=== PATIENT | female | born 1945 | race Two or more races ===

== ENCOUNTER 2020-05-30 06:38 | Day surgery (SDC) | payer OTHER | END 2020-05-30 10:35 | disposition home or self-care (01) | LOC: AMB-ENDOS 06:38 | PROVIDERS: ATTEND Surgery | DX: K62.89 Other specified diseases of anus and rectum (principal); K64.4 Residual hemorrhoidal skin tags; Z20.822 Contact with and (suspected) exposure to COVID-19 ==

== ENCOUNTER 2020-12-30 14:09 | Outpatient (CLI) | payer OTHER | END 2020-12-30 14:18 | disposition home or self-care (01) | LOC: RAD 14:09 | PROVIDERS: ATTEND Surgery | DX: K59.02 Outlet dysfunction constipation (principal); N81.6 Rectocele; N81.5 Vaginal enterocele ==

== ENCOUNTER 2023-01-02 08:42 | Inpatient (IN) | payer OTHER ==
[~2023-01-02] VITALS: Ht 152.4 cm; Wt 54.4 kg
[~2023-01-02 08:42] MED LIST: ARNUITY ELLIPT50 MCG; INTESTINEX680 M1 PO; MONTELUKAST SOD10 MG; NORVASC2.5 MG; PREGABALIN100 MG; ROSUVASTATIN CAL5 MG; SYNTHROID75 MCG
--- NOTE | 2023-01-02 09:01 | NUR ---
PACIENTE FEMENINA ALERTA Y ORIENTADA X3, REFIERE TENER DIARREAS FUE OPERADA EL 12/16/22 POR LA DOCTORHarpreet HORTON, CARMEN LE REFIRIO QUE VINIERA A RAFAEL DE EMERGENCIA A SER ADMITIDA.
--- NOTE | 2023-01-02 10:02 | NUR ---
PTE EVALUADO POR QUIEN INDICA TX, PTE REFIERE ENTENDER Y ACEPTAR, MS.FREY COLECTA MUESTRAS DE LABORATORIO Y ADMINISTRA MEDICAMENTOS NIYAH ORDEN MEDICA Y SIGUIENDO MEDIDAS ASEPTICAS. SE HACE EKG Y SE PRESENTA A .
[2023-01-02 10:33] LABS: HEMATOCRIT 31.9 % (36.0-45.00); HEMOGLOBIN 10.6 g/dL (12.0-15.00); MEAN CELL VOLUME 84.5 fL (80.00-100.00); MEAN CORPUSCULAR HEMOGLOBIN 28.2 pg (27.00-32.0); MEAN CORPUSCULAR HGB CONC 33.4 g/dl (32.0-36.0); PLATELET COUNT 369 K/uL (150-450); RED BLOOD COUNT 3.77 M/uL (4.00-6.00); RED CELL DISTRIBUTION WIDTH 13.8 % (11.5-14.5)
[2023-01-02 10:51] LABS: CALCIUM 9.1 mg/dL (8.5-10.1); CREATININE SERUM 0.93 mg/dL (0.55-1.02); GFR 58.46; POTASSIUM 4.34 mEq/L (3.5-5.1)
[2023-01-02 11:21] LABS: PH,URINE 6.5 (5.0-8.0); URINE APPEARANCE Clear; URINE BILIRRUBIN Negative (NEGATIVE); URINE BLOOD Negative; URINE COLOR Yellow; URINE GLUCOSE Negative (NEGATIVE); URINE LEUKOCYTE Small; URINE NITRATE Negative; URINE PROTEIN Negative (NEGATIVE); URINE UROBILINOGEN 0.2 E.U./dl
[2023-01-02 11:25] LABS: URINE EPITHELIAL CELLS 5.7 uL (0.0-38.8); URINE WBC 48.2 uL (0.0-23.2)
[2023-01-02 11:27] LABS: URINE RBC 1.4 uL (0.0-20.8)
[2023-01-02 11:30] LABS: PARTIAL THROMBOPLASTIN TIME 27.1 SECONDS (22.0-34.0); PROTHROMBIN TIME 10.5 SECONDS (9.0-11.5)
[2023-01-02 14:15] LABS: CHOL HDL RATIO 3.4 (0-5.0)
[2023-01-03 08:42] LABS: HEMOGLOBIN 10.5 g/dL (12.0-15.00); MEAN CELL VOLUME 83.9 fL (80.00-100.00); MEAN CORPUSCULAR HEMOGLOBIN 28.5 pg (27.00-32.0); PLATELET COUNT 370 K/uL (150-450)
[2023-01-03 12:28] LABS: ALBUMIN 3.8 gm/dL (3.4-5.0); CALCIUM 8.8 mg/dL (8.5-10.1); CREATININE SERUM 0.82 mg/dL (0.55-1.02); GFR 67.6; MAGNESIUM 2.3 mg/dL (1.8-2.4); POTASSIUM 4.25 mEq/L (3.5-5.1); TSH 3.15 uIU/mL (0.358-3.74)
[2023-01-05 06:29] LABS: PARTIAL THROMBOPLASTIN TIME 28.5 SECONDS (22.0-34.0); PROTHROMBIN TIME 10.5 SECONDS (9.0-11.5)
[2023-01-05 06:35] LABS: HEMATOCRIT 30.3 % (36.0-45.00); HEMOGLOBIN 10.4 g/dL (12.0-15.00); MEAN CELL VOLUME 83.3 fL (80.00-100.00); MEAN CORPUSCULAR HEMOGLOBIN 28.5 pg (27.00-32.0); MEAN CORPUSCULAR HGB CONC 34.2 g/dl (32.0-36.0); PLATELET COUNT 300 K/uL (150-450); RED BLOOD COUNT 3.64 M/uL (4.00-6.00)
[2023-01-05 07:04] LABS: ALBUMIN 3.5 gm/dL (3.4-5.0); BILIRUBIN TOTAL 0.51 mg/dL (0.3-1.2); BILIRUBIN,CONJUGATED 0.15 mg/dL (0.0-0.2); BILIRUBIN,UNCONJUGATED 0.36 mg/dL (0.0-0.6); CALCIUM 8.5 mg/dL (8.5-10.1); CHOL HDL RATIO 3.4 (0-5.0); CREATININE SERUM 0.74 mg/dL (0.55-1.02); GFR 76.1; GLOBULINA 3.3 G/DL (2.4-3.5); MAGNESIUM 2.1 mg/dL (1.8-2.4); PHOSPHOROUS 2.9 mg/dL (2.5-4.9); POTASSIUM 4.21 mEq/L (3.5-5.1); TOTAL PROTEIN 6.8 gm/dL (6.4-8.2)
[2023-01-08 06:54] LABS: HEMATOCRIT 32.3 % (36.0-45.00); HEMOGLOBIN 11.1 g/dL (12.0-15.00); MEAN CELL VOLUME 83.7 fL (80.00-100.00); MEAN CORPUSCULAR HEMOGLOBIN 28.8 pg (27.00-32.0); MEAN CORPUSCULAR HGB CONC 34.4 g/dl (32.0-36.0); PLATELET COUNT 228 K/uL (150-450); RED BLOOD COUNT 3.86 M/uL (4.00-6.00); RED CELL DISTRIBUTION WIDTH 14.3 % (11.5-14.5)
[2023-01-08 07:25] LABS: CALCIUM 9.2 mg/dL (8.5-10.1); CREATININE SERUM 0.81 mg/dL (0.55-1.02); GFR 68.38; MAGNESIUM 2.3 mg/dL (1.8-2.4); PHOSPHOROUS 2.8 mg/dL (2.5-4.9); POTASSIUM 4.41 mEq/L (3.5-5.1)
[2023-01-10 08:09] LABS: CREATININE SERUM 0.8 mg/dL (0.55-1.02); GFR 69.37; MAGNESIUM 2.1 mg/dL (1.8-2.4); PHOSPHOROUS 2.5 mg/dL (2.5-4.9); POTASSIUM 4.08 mEq/L (3.5-5.1)
[2023-01-10 15:55] LABS: HEMATOCRIT 30.6 % (36.0-45.00); MEAN CELL VOLUME 86.1 fL (80.00-100.00); MEAN CORPUSCULAR HEMOGLOBIN 28.2 pg (27.00-32.0); MEAN CORPUSCULAR HGB CONC 32.7 g/dl (32.0-36.0); PLATELET COUNT 186 K/uL (150-450); RED BLOOD COUNT 3.55 M/uL (4.00-6.00); RED CELL DISTRIBUTION WIDTH 14.2 % (11.5-14.5)
[2023-01-11 06:47] LABS: HEMATOCRIT 30.2 % (36.0-45.00); MEAN CORPUSCULAR HEMOGLOBIN 28.9 pg (27.00-32.0); PLATELET COUNT 188 K/uL (150-450); RED BLOOD COUNT 3.56 M/uL (4.00-6.00); RED CELL DISTRIBUTION WIDTH 14.5 % (11.5-14.5)
[2023-01-11 06:50] LABS: CALCIUM 8.7 mg/dL (8.5-10.1); CREATININE SERUM 0.84 mg/dL (0.55-1.02); GFR 65.57; HEMOGLOBIN 10.3 g/dL (12.0-15.00); POTASSIUM 3.95 mEq/L (3.5-5.1)
[2023-01-13 07:25] LABS: HEMATOCRIT 33.1 % (36.0-45.00); HEMOGLOBIN 10.9 g/dL (12.0-15.00); MEAN CELL VOLUME 85.8 fL (80.00-100.00); MEAN CORPUSCULAR HEMOGLOBIN 28.3 pg (27.00-32.0); PLATELET COUNT 173 K/uL (150-450); RED BLOOD COUNT 3.85 M/uL (4.00-6.00); RED CELL DISTRIBUTION WIDTH 14.6 % (11.5-14.5)
[2023-01-13 08:03] LABS: ANION GAP 9 (10.0-20.0); BLOOD UREA NITROGEN 14 mg/dL (7-18); BUN CREA RATIO 18 (7.0-25.0); C-REACTIVE PROTEIN < 0.29 MG/DL (0.00-0.29); CALCIUM 8.5 mg/dL (8.5-10.1); CARBON DIOXIDE 25 mEq/L (21-32); CHLORIDE 105 mmol/L (98-107); CREATININE SERUM 0.78 mg/dL (0.55-1.02); GFR 71.43; GLUCOSE FASTING 108 mg/dL (65-100); OSMOLALITY SERUM 271 MOSM/KG (275-295); PHOSPHOROUS 2.5 mg/dL (2.5-4.9); POTASSIUM 3.94 mEq/L (3.5-5.1); SODIUM 135 mmol/L (136-145)
[2023-01-14] MEDS ORDERED: PANTOPRAZOLE SO40 MG PO (11:25)
[2023-01-14] MEDS ORDERED: PREGABALIN100 MG PO (11:25)
[2023-01-14] MEDS ORDERED: ABANEU-SL TABL1 EACH SL (11:25)
[2023-01-14] MEDS ORDERED: NORVASC2.5 MG PO (11:25)
[2023-01-14] MEDS ORDERED: PREGABALIN25 MG PO (11:25)
[2023-01-14] MEDS ORDERED: CHOLESTYRAMINE P4 GM PO (11:25)
[2023-01-14] MEDS ORDERED: VANCOMYCIN HCL1 GM PO (11:25)
[2023-01-14] MEDS ORDERED: MONTELUKAST SOD10 MG PO (11:25)
[2023-01-14] MEDS ORDERED: HYOSCYAMINE0.125 M1 SL (11:25)
[2023-01-14] MEDS ORDERED: ROSUVASTATIN CAL5 MG PO (11:25)
[2023-01-14] MEDS ORDERED: HYDROCORTISO453.6 G1 RECTAL (11:25)
[2023-01-14] MEDS ORDERED: SYNTHROID75 MCG PO (11:25)
[2023-01-14] MEDS ORDERED: INTESTINEX680 M1 PO (11:25)
[2023-01-14] MEDS ORDERED: PRAMOXINE HCL15 GM RECTAL (11:25)
== END 2023-01-14 13:39 | disposition home or self-care (01) | DRG 372 ==
LOC: ER 08:42 → SURH 13:53
PROVIDERS: Emergency Medicine; Internal Medicine; Internal Medicine Geriatric Medicine; ADMIT Surgery; ATTEND Surgery
PROC: 8E0ZXY6 Isolation (ICD-10-PCS; principal; 2023-01-02)
PROC: BW21ZZZ Computerized Tomography (CT Scan) of Abdomen and Pelvis (ICD-10-PCS; 2023-01-02)
PROC: 02HV33Z Insertion of Infusion Device into Superior Vena Cava, Percutaneous Approach (ICD-10-PCS; 2023-01-03)
PROC: 3E0436Z Introduction of Nutritional Substance into Central Vein, Percutaneous Approach (ICD-10-PCS; 2023-01-03)
PROC: 0W3P8ZZ Control Bleeding in Gastrointestinal Tract, Via Natural or Artificial Opening Endoscopic (ICD-10-PCS; 2023-01-12)
PROC: 3E0H8GC Introduction of Other Therapeutic Substance into Lower GI, Via Natural or Artificial Opening Endoscopic (ICD-10-PCS; 2023-01-12)
DX: A04.72 Enterocolitis due to Clostridium difficile, not specified as recurrent (principal); E87.1 Hypo-osmolality and hyponatremia; K62.5 Hemorrhage of anus and rectum; D72.819 Decreased white blood cell count, unspecified; E86.0 Dehydration; K64.2 Third degree hemorrhoids; D64.89 Other specified anemias; B37.31 Acute candidiasis of vulva and vagina; I10 Essential (primary) hypertension; E03.9 Hypothyroidism, unspecified; Z98.890 Other specified postprocedural states